=== PATIENT | male | born 1980 | race African-American/Black ===

== ENCOUNTER 2023-06-20 19:14 | Inpatient (IN) | payer OTHER ==
[2023-06-20 20:35] VITALS: BMI 19.3
[2023-06-20] MEDS ORDERED: ACETAMINOPHEN 325 MG TABLET (FP) PO PRN (22:41)
[2023-06-20] MEDS ORDERED: DICYCLOMINE HCL 10 MG CAPSULE PO PRN (22:41)
[2023-06-20] MEDS ORDERED: guaiFENesin 600 MG TABLET.ER (FP) PO PRN (22:41)
[2023-06-20] MEDS ORDERED: BISMUTH SUBSALICYLATE 524 MG/30 ML PO PRN (22:41)
[2023-06-20] MEDS ORDERED: ONDANSETRON *ODT* 4 MG TABLET SL PRN (22:41)
[2023-06-20] MEDS ORDERED: BENZOCAINE/MENTHOL (CHLORASEPTIC ) LOZENGE MM PRN (22:41)
[2023-06-20] MEDS ORDERED: IBUPROFEN 400 MG TABLET (FP) PO PRN (22:41)
[2023-06-20] MEDS ORDERED: MAGNESIUM HYDROX 2400MG/30ML ORAL SUSPENSION 30 ML CUP PO PRN (22:41)
[2023-06-20] MEDS ORDERED: BENZONATATE 200 MG CAPSULE PO PRN (22:41)
[2023-06-20] MEDS ORDERED: MAG HYDROX/AL HYDROX/SIMETH 30 ML UNIT-DOSE CUP PO PRN (22:41)
[2023-06-20] MEDS ORDERED: LOPERAMIDE HCL 2 MG CAPSULE PO PRN (22:41)
[2023-06-20] MEDS ORDERED: IBUPROFEN 600 MG TABLET (FP) PO PRN (22:41)
[2023-06-20] MEDS ORDERED: NICOTINE POLACRILEX 2 MG GUM BUC PRN (22:41)
[2023-06-20] MEDS ORDERED: NALOXONE HCL 0.4 MG/ML VIAL IM PRN (22:41)
[2023-06-20] MEDS ORDERED: POLYETHYLENE GLYCOL (HEALTHYLAX) 3350 17 GM PACKET PO PRN (22:41)
[2023-06-20] MEDS ORDERED: NALOXONE HCL (KLOXXADO) 8 MG SPRAY NS PRN (22:41)
[2023-06-21] MEDS: hydrOXYzine PAMOATE 25 MG CAPSULE (FP) PO PRN ×2 (01:42→09:57)
[2023-06-21] MEDS: METHOCARBAMOL 500 MG TABLET PO PRN ×3 (01:42→17:13)
[2023-06-21] MEDS: NICOTINE 14 MG/24 HOURS TOPICAL PATCH TD SCH (09:57)
[2023-06-21] MEDS: PRENATAL VITAMINS W/ FOLIC ACID TABLET (FP) PO SCH (09:57)
[2023-06-21] MEDS ORDERED: chlordiazePOXIDE HCL 25 MG CAPSULE PO PRN (11:02)
[2023-06-21] MEDS: chlordiazePOXIDE HCL 25 MG CAPSULE PO SCH ×3 (11:54→22:23)
[2023-06-21] MEDS: CITALOPRAM HYDROBROMIDE 10 MG TABLET PO SCH (12:13)
[2023-06-21 17:10] LABS: HEMATOCRIT 36.8 % (35.4-49); HEMOGLOBIN 12.6 GM/dL (11.7-16.9); MCH 36.4 pg (25.7-33.7); MCHC 34.3 g/dl (32.0-35.9); MEAN CELL VOLUME 106.1 fl (80-96); MEAN PLT VOLUME 8.8 fl (7.5-11.1); PLATELET COUNT 133 10^3/uL (134-434); RBC 3.46 M/mm3 (4.00-5.60); RDW 13.4 % (11.9-15.9); WHITE BLOOD COUNT 3.3 K/mm3 (4.0-10.0)
[2023-06-21 17:11] LABS: CHLORIDE 104 mmol/L (98-107); POTASSIUM 3.6 mmol/L (3.5-5.1); SODIUM 138 mmol/L (136-145)
[2023-06-21 17:17] LABS: CALCIUM 9.1 mg/dL (8.5-10.1)
[2023-06-21 17:18] LABS: ALBUMIN 3.2 g/dl (3.4-5.0); ANION GAP 2 mmol/L (4-13); BLOOD UREA NITROGEN 7.4 mg/dL (7-18); CO2 32 mmol/L (21-32); GLUCOSE,RANDOM 90 mg/dL (74-106)
[2023-06-21 17:21] LABS: SGOT/AST 73 U/L (15-37); SGPT/ALT 67 U/L (13-61)
[2023-06-21 17:22] LABS: BILIRUBIN,TOTAL 0.7 mg/dL (0.2-1); TOT PROT 6.3 g/dl (6.4-8.2)
[2023-06-21 17:24] LABS: ALK PHOS 81 U/L (45-117)
[2023-06-21] MEDS: DORZOLAMIDE 2% HCL OPHTHALMIC SOLUTION 10 ML BOTTLE OS SCH (21:05)
[2023-06-21] MEDS ORDERED: MELATONIN 5 MG TABLETS PO SCH (22:00)
[2023-06-21] MEDS: QUEtiapine FUMARATE 100 MG TABLET (FP) PO SCH (22:23)
[2023-06-21] MEDS: THIAMINE HCL 100 MG TABLET (FP) PO SCH (22:23)
[2023-06-21] MEDS: LATANOPROST 0.005% OPHTH SOLN 2.5ML BOTTLE OS SCH (22:25)
[2023-06-22] MEDS: chlordiazePOXIDE HCL 25 MG CAPSULE PO SCH ×4 (05:55→22:30)
[2023-06-22] MEDS: NICOTINE 14 MG/24 HOURS TOPICAL PATCH TD SCH (10:13)
[2023-06-22] MEDS: METHOCARBAMOL 500 MG TABLET PO PRN (10:13)
[2023-06-22] MEDS: PRENATAL VITAMINS W/ FOLIC ACID TABLET (FP) PO SCH (10:13)
[2023-06-22] MEDS: CITALOPRAM HYDROBROMIDE 10 MG TABLET PO SCH (10:13)
[2023-06-22] MEDS: hydrOXYzine PAMOATE 25 MG CAPSULE (FP) PO PRN (10:13)
[2023-06-22] MEDS: DORZOLAMIDE 2% HCL OPHTHALMIC SOLUTION 10 ML BOTTLE OS SCH ×2 (10:14→22:35)
[2023-06-22] MEDS: THIAMINE HCL 100 MG TABLET (FP) PO SCH (22:30)
[2023-06-22] MEDS: QUEtiapine FUMARATE 100 MG TABLET (FP) PO SCH (22:30)
[2023-06-22] MEDS: LATANOPROST 0.005% OPHTH SOLN 2.5ML BOTTLE OS SCH (22:35)
[2023-06-23] MEDS: chlordiazePOXIDE HCL 25 MG CAPSULE PO SCH ×2 (05:25→10:34)
[2023-06-23 09:58] VITALS: BP 137/89; PULSE 54; RESP 16; TEMP 98.1
[2023-06-23] MEDS: NICOTINE 14 MG/24 HOURS TOPICAL PATCH TD SCH (10:29)
[2023-06-23] MEDS: METHOCARBAMOL 500 MG TABLET PO PRN (10:32)
[2023-06-23] MEDS: PRENATAL VITAMINS W/ FOLIC ACID TABLET (FP) PO SCH (10:32)
[2023-06-23] MEDS: hydrOXYzine PAMOATE 25 MG CAPSULE (FP) PO PRN (10:32)
[2023-06-23] MEDS: CITALOPRAM HYDROBROMIDE 10 MG TABLET PO SCH (10:32)
[2023-06-23] MEDS: DORZOLAMIDE 2% HCL OPHTHALMIC SOLUTION 10 ML BOTTLE OS SCH (10:34)
[2023-06-24] MEDS ORDERED: chlordiazePOXIDE HCL 10 MG CAPSULE PO PRN
[2023-06-24] MEDS ORDERED: chlordiazePOXIDE HCL 10 MG CAPSULE PO SCH (05:00)
[2023-06-25] MEDS ORDERED: chlordiazePOXIDE HCL 10 MG CAPSULE PO SCH (05:00)
[2023-06-26] MEDS ORDERED: chlordiazePOXIDE HCL 10 MG CAPSULE PO ONE (05:00)
== END 2023-06-23 11:45 | disposition home or self-care (01) | DRG 774 ==
LOC: YASAS 19:14 → Y6N 23:56
PROVIDERS: ADMIT Allergy & Immunology; ATTEND Surgery
PROC: HZ2ZZZZ Detoxification Services for Substance Abuse Treatment (ICD-10-PCS; principal; 2023-06-20)
DX: F10.230 Alcohol dependence with withdrawal, uncomplicated (principal); F14.20 Cocaine dependence, uncomplicated; F16.20 Hallucinogen dependence, uncomplicated; F12.20 Cannabis dependence, uncomplicated; F17.210 Nicotine dependence, cigarettes, uncomplicated; F31.9 Bipolar disorder, unspecified; H40.9 Unspecified glaucoma; M17.11 Unilateral primary osteoarthritis, right knee
CPT/HCPCS: 36415; 80053; 80307; 85027; 86780; 87635; 87811

== ENCOUNTER 2023-07-10 02:47 | Emergency (ER) | payer OTHER ==
[2023-07-10 03:00] VITALS: BP 127/80; PULSE 98; RESP 19; TEMP 98; BMI 20.6
[2023-07-10] MEDS ORDERED: LACTATED RINGERS SOLUTION 1000 ML INFUS.BAG IV ONE (03:29)
[2023-07-10 03:51] LABS: HEMATOCRIT 39.3 % (35.4-49); HEMOGLOBIN 13.4 GM/dL (11.7-16.9); LYMPH % 39.8 % (8-40); MCH 35.8 pg (25.7-33.7); MCHC 34.1 g/dl (32.0-35.9); MEAN CELL VOLUME 105.1 fl (80-96); MEAN PLT VOLUME 7.8 fl (7.5-11.1); MONO % 8.5 % (3.8-10.2); NEUT % 49.7 % (42.8-82.8); PLATELET COUNT 197 10^3/uL (134-434); RBC 3.74 M/mm3 (4.00-5.60); RDW 13.8 % (11.9-15.9); WHITE BLOOD COUNT 4.6 K/mm3 (4.0-10.0)
[2023-07-10 04:15] LABS: POTASSIUM 3.3 mmol/L (3.5-5.1)
[2023-07-10 04:17] LABS: ALBUMIN 3.8 g/dl (3.4-5.0); BLOOD UREA NITROGEN 10.9 mg/dL (7-18); CALCIUM 9.1 mg/dL (8.5-10.1)
[2023-07-10 04:20] LABS: CREATININE 1.1 mg/dL (0.55-1.3)
[2023-07-10 04:22] LABS: BILIRUBIN,TOTAL 0.4 mg/dL (0.2-1); TOT PROT 7.3 g/dl (6.4-8.2)
[2023-07-10] MEDS ORDERED: POTASSIUM CHLORIDE TABS 20 MEQ TABLET.ER (FP) PO ONE ×2 (04:39→04:46)
[2023-07-10] MEDS ORDERED: MAGNESIUM SULF 50% (8.12 MEQ/2 ML-1 GM VIAL) IVPB ONE (04:39)
[2023-07-10] MEDS ORDERED: MAGNESIUM SULFATE IN WATER 2 GM/50 ML IVPB IVPB ONE (04:46)
[2023-07-10 06:07] LABS: ANISOCYTOSIS 1+; MACROCYTOSIS 1+; PLATELET ESTIMATE NORMAL
== END 2023-07-10 06:32 | disposition home or self-care (01) ==
LOC: JER 02:47
PROC: 3E033GC Introduction of Other Therapeutic Substance into Peripheral Vein, Percutaneous Approach (ICD-10-PCS; principal; 2023-07-10)
DX: F10.129 Alcohol abuse with intoxication, unspecified (principal); Y90.8 Blood alcohol level of 240 mg/100 ml or more
CPT/HCPCS: 36415; 80053; 80307; 84484; 85025; 93005; 93010; 99284-25

== ENCOUNTER 2023-07-11 09:36 | Observation (INO) | payer OTHER ==
[2023-07-11] MEDS ORDERED: MAG HYDROX/AL HYDROX/SIMETH 30 ML UNIT-DOSE CUP PO ONE (11:12)
[2023-07-11] MEDS ORDERED: ONDANSETRON 4 MG/2 ML VIAL IVPUSH ONE (11:12)
[2023-07-11] MEDS ORDERED: LACTATED RINGERS SOLUTION 1000 ML INFUS.BAG IV ONE (11:12)
[2023-07-11] MEDS ORDERED: FAMOTIDINE 20 MG/50 ML IVPB 20 MG/50 ML MG IVPB ONE ×2 (11:12→11:35)
[2023-07-11] MEDS ORDERED: MAG HYDROX/AL HYDROX/SIMETH 30 ML UNIT-DOSE CUP ONE (11:35)
[2023-07-11] MEDS ORDERED: ONDANSETRON 4 MG/2 ML VIAL ONE (11:35)
[2023-07-11 13:00] LABS: BASO % 0.9 % (0-2.0); EOS % 0.1 % (0-4.5); HEMATOCRIT 36.9 % (35.4-49); HEMOGLOBIN 12.5 GM/dL (11.7-16.9); LYMPH % 13.3 % (8-40); MCH 35.6 pg (25.7-33.7); MCHC 33.9 g/dl (32.0-35.9); MEAN CELL VOLUME 105.2 fl (80-96); MEAN PLT VOLUME 8.7 fl (7.5-11.1); MONO % 9.1 % (3.8-10.2); NEUT % 76.6 % (42.8-82.8); PLATELET COUNT 157 10^3/uL (134-434); RBC 3.51 M/mm3 (4.00-5.60); RDW 13.5 % (11.9-15.9); WHITE BLOOD COUNT 5.8 K/mm3 (4.0-10.0)
[2023-07-11 13:06] LABS: INR 1.01 (0.83-1.09); PROTHROMBIN TIME (PATIENT) 11.7 SEC (9.7-13.0)
[2023-07-11 13:09] LABS: ACTIVATED PTT 28.5 SECONDS (25.2-36.5)
[2023-07-11 13:19] LABS: POTASSIUM 3.6 mmol/L (3.5-5.1)
[2023-07-11 13:21] LABS: ALBUMIN 3.8 g/dl (3.4-5.0); BLOOD UREA NITROGEN 10.8 mg/dL (7-18); CALCIUM 8.5 mg/dL (8.5-10.1); MAGNESIUM 1.6 mg/dL (1.8-2.4)
[2023-07-11 13:26] LABS: BILIRUBIN,TOTAL 1.1 mg/dL (0.2-1); TOT PROT 7.4 g/dl (6.4-8.2)
[2023-07-11] MEDS ORDERED: chlordiazePOXIDE HCL 25 MG CAPSULE PO ONE (16:32)
[2023-07-11 16:36] LABS: OPIATES, URI NEGATIVE (NEGATIVE); URINE BARBITURATES NEGATIVE (NEGATIVE)
[2023-07-11 16:37] LABS: METHADONE, UR NEGATIVE (NEGATIVE); URINE AMPHETAMINES NEGATIVE (NEGATIVE)
[2023-07-11 16:39] LABS: COCAINE, UR POSITIVE (NEGATIVE); PHENCYCLIDINE,URINE POSITIVE (NEGATIVE); URINE BENZODIAZEPINES POSITIVE (NEGATIVE)
[2023-07-11] MEDS ORDERED: chlordiazePOXIDE HCL 25 MG CAPSULE ONE (17:30)
[2023-07-11] MEDS ORDERED: ACETAMINOPHEN INJECTION 100 ML IVPB ONE (17:30)
[2023-07-11] MEDS ORDERED: MAGNESIUM SULF 50% (8.12 MEQ/2 ML-1 GM VIAL) IVPB ONE (19:50)
[2023-07-11] MEDS ORDERED: MAGNESIUM SULFATE IN WATER 2 GM/50 ML IVPB IVPB ONE (20:35)
[2023-07-11] MEDS: DEXTROSE 5%-0.45% SALINE 1,000 ML IV SCH (21:26)
[2023-07-12 04:29] VITALS: BMI 20.3
[2023-07-12 08:18] LABS: BASO % 0.8 % (0-2.0); EOS % 1.7 % (0-4.5); HEMATOCRIT 35.2 % (35.4-49); HEMOGLOBIN 12.1 GM/dL (11.7-16.9); LYMPH % 27.2 % (8-40); MCH 36.2 pg (25.7-33.7); MCHC 34.3 g/dl (32.0-35.9); MEAN CELL VOLUME 105.5 fl (80-96); MEAN PLT VOLUME 9.2 fl (7.5-11.1); MONO % 13.2 % (3.8-10.2); NEUT % 57.1 % (42.8-82.8); PLATELET COUNT 129 10^3/uL (134-434); RBC 3.34 M/mm3 (4.00-5.60); WHITE BLOOD COUNT 3.6 K/mm3 (4.0-10.0)
[2023-07-12 08:26] LABS: POTASSIUM 3.1 mmol/L (3.5-5.1)
[2023-07-12 08:28] LABS: CALCIUM 8.1 mg/dL (8.5-10.1)
[2023-07-12 08:29] LABS: ALBUMIN 3.3 g/dl (3.4-5.0); BLOOD UREA NITROGEN 9.7 mg/dL (7-18)
[2023-07-12 08:33] LABS: BILIRUBIN,TOTAL 1.7 mg/dL (0.2-1); TOT PROT 6.4 g/dl (6.4-8.2)
[2023-07-12] MEDS ORDERED: ONDANSETRON 4 MG/2 ML VIAL IVPUSH PRN (08:49)
[2023-07-12] MEDS ORDERED: POTASSIUM CHLORIDE ORAL LIQUID 20 MEQ/15 ML PO ONE (09:15)
[2023-07-12 09:38] VITALS: RESP 18
[2023-07-12] MEDS: PANTOPRAZOLE 40 MG TABLET PO SCH (09:48)
[2023-07-12] MEDS: FOLIC ACID 1 MG TABLET (FP) PO SCH (09:48)
[2023-07-12] MEDS: THIAMINE HCL 100 MG TABLET (FP) PO SCH (09:48)
[2023-07-12] MEDS ORDERED: LORazepam 2 MG TABLET PO SCH (11:00)
[2023-07-12] MEDS: DORZOLAMIDE 2% HCL OPHTHALMIC SOLUTION 10 ML BOTTLE OS SCH ×2 (11:10→21:08)
[2023-07-12] MEDS ORDERED: LORazepam 1 MG TABLET PO PRN (12:37)
[2023-07-12] MEDS: DEXTROSE 5%-0.45% SALINE 1,000 ML IV SCH ×2 (13:16→21:01)
[2023-07-12] MEDS: LORazepam 1 MG TABLET PO SCH ×2 (17:13→22:08)
[2023-07-12] MEDS ORDERED: LATANOPROST 0.005% OPHTH SOLN 2.5ML BOTTLE OS SCH (22:00)
[2023-07-12] MEDS ORDERED: QUEtiapine FUMARATE 100 MG TABLET (FP) PO SCH (22:00)
[2023-07-12] MEDS ORDERED: CITALOPRAM HYDROBROMIDE 20 MG TABLET PO SCH (22:00)
[2023-07-13] MEDS: LORazepam 1 MG TABLET PO SCH ×2 (05:40→11:20)
[2023-07-13 08:26] LABS: BASO % 0.7 % (0-2.0); EOS % 2.9 % (0-4.5); HEMATOCRIT 37.4 % (35.4-49); HEMOGLOBIN 12.6 GM/dL (11.7-16.9); LYMPH % 35.1 % (8-40); MCH 35.9 pg (25.7-33.7); MCHC 33.6 g/dl (32.0-35.9); MEAN CELL VOLUME 106.8 fl (80-96); MEAN PLT VOLUME 9.1 fl (7.5-11.1); MONO % 13.5 % (3.8-10.2); NEUT % 47.8 % (42.8-82.8); PLATELET COUNT 118 10^3/uL (134-434); POTASSIUM 3.3 mmol/L (3.5-5.1); RDW 12.8 % (11.9-15.9); WHITE BLOOD COUNT 3.2 K/mm3 (4.0-10.0)
[2023-07-13 08:37] LABS: ALBUMIN 3.2 g/dl (3.4-5.0); BLOOD UREA NITROGEN 6.7 mg/dL (7-18); CALCIUM 8.4 mg/dL (8.5-10.1)
[2023-07-13 08:40] LABS: CREATININE 0.9 mg/dL (0.55-1.3)
[2023-07-13 08:41] LABS: BILIRUBIN,TOTAL 0.8 mg/dL (0.2-1); TOT PROT 6.4 g/dl (6.4-8.2)
[2023-07-13 09:05] LABS: ANISOCYTOSIS 1+; MACROCYTOSIS 2+
[2023-07-13] MEDS: THIAMINE HCL 100 MG TABLET (FP) PO SCH (11:18)
[2023-07-13] MEDS: FOLIC ACID 1 MG TABLET (FP) PO SCH (11:19)
[2023-07-13] MEDS: PANTOPRAZOLE 40 MG TABLET PO SCH (11:19)
[2023-07-13] MEDS: DORZOLAMIDE 2% HCL OPHTHALMIC SOLUTION 10 ML BOTTLE OS SCH (11:26)
[2023-07-13] MEDS ORDERED: POTASSIUM CHLORIDE ORAL LIQUID 20 MEQ/15 ML PO ONE (11:30)
[2023-07-13 15:25] VITALS: BP 155/99; PULSE 58; TEMP 97.8
[2023-07-14] MEDS ORDERED: LORazepam 1 MG TABLET PO SCH (05:00)
[2023-07-15] MEDS ORDERED: LORazepam 0.5 MG TABLET PO PRN
[2023-07-15] MEDS ORDERED: LORazepam 0.5 MG TABLET PO SCH (05:00)
[2023-07-16] MEDS ORDERED: LORazepam 0.5 MG TABLET PO ONE (05:00)
== END 2023-07-13 15:18 | disposition left against medical advice (07) ==
LOC: JER 09:36 → JERBED 17:19 → J4S 07-12 03:59
PROVIDERS: ADMIT Internal Medicine; ATTEND Internal Medicine
PROC: 3E0337Z Introduction of Electrolytic and Water Balance Substance into Peripheral Vein, Percutaneous Approach (ICD-10-PCS; principal; 2023-07-11)
PROC: 3E033GC Introduction of Other Therapeutic Substance into Peripheral Vein, Percutaneous Approach (ICD-10-PCS; 2023-07-11)
PROC: 3E0337Z Introduction of Electrolytic and Water Balance Substance into Peripheral Vein, Percutaneous Approach (ICD-10-PCS; 2023-07-11)
DX: F10.229 Alcohol dependence with intoxication, unspecified (principal); F12.90 Cannabis use, unspecified, uncomplicated; R63.8 Other symptoms and signs concerning food and fluid intake; K70.0 Alcoholic fatty liver; F19.239 Other psychoactive substance dependence with withdrawal, unspecified; F41.8 Other specified anxiety disorders; F31.9 Bipolar disorder, unspecified; M16.11 Unilateral primary osteoarthritis, right hip; M41.9 Scoliosis, unspecified; R10.9 Unspecified abdominal pain; R74.8 Abnormal levels of other serum enzymes; F17.210 Nicotine dependence, cigarettes, uncomplicated
CPT/HCPCS: 0241U-QW; 36415; 71045-TC-FY; 74177-TC; 80053; 80307; 83690; 83735; 84484; 85025; 85610; 85730; 93005; 93010; 96361; 96365; 96375; 97116-GP; 97161-GP; 99285-25; G0378; Q9967

== ENCOUNTER 2023-08-16 01:35 | Emergency (ER) | payer OTHER ==
[2023-08-16] MEDS ORDERED: FAMOTIDINE 10 MG TABLET PO ONE (06:20)
[2023-08-16] MEDS ORDERED: MAG HYDROX/AL HYDROX/SIMETH 30 ML UNIT-DOSE CUP PO ONE (06:20)
[2023-08-16 06:34] LABS: BASO % 0.8 % (0-2.0); EOS % 1.2 % (0-4.5); HEMATOCRIT 42.1 % (35.4-49); HEMOGLOBIN 14.2 GM/dL (11.7-16.9); LYMPH % 52.3 % (8-40); MCH 35.6 pg (25.7-33.7); MCHC 33.7 g/dl (32.0-35.9); MEAN CELL VOLUME 105.8 fl (80-96); MEAN PLT VOLUME 7.4 fl (7.5-11.1); MONO % 9.5 % (3.8-10.2); NEUT % 36.2 % (42.8-82.8); PLATELET COUNT 228 10^3/uL (134-434); RBC 3.98 M/mm3 (4.00-5.60); RDW 12.9 % (11.9-15.9); WHITE BLOOD COUNT 4.6 K/mm3 (4.0-10.0)
[2023-08-16 06:42] LABS: INR 0.96 (0.83-1.09); PROTHROMBIN TIME (PATIENT) 11.1 SEC (9.7-13.0)
[2023-08-16 06:44] LABS: ACTIVATED PTT 30.3 SECONDS (25.2-36.5)
[2023-08-16 06:45] LABS: POTASSIUM 3.5 mmol/L (3.5-5.1)
[2023-08-16 06:47] LABS: ALBUMIN 3.7 g/dl (3.4-5.0); BLOOD UREA NITROGEN 9.5 mg/dL (7-18); CALCIUM 8.5 mg/dL (8.5-10.1); MAGNESIUM 1.4 mg/dL (1.8-2.4)
[2023-08-16 06:50] LABS: CREATININE 1.1 mg/dL (0.55-1.3)
[2023-08-16 06:52] LABS: BILIRUBIN,TOTAL 0.1 mg/dL (0.2-1); TOT PROT 7.6 g/dl (6.4-8.2)
[2023-08-16] MEDS ORDERED: FAMOTIDINE 10 MG TABLET ONE (06:59)
[2023-08-16] MEDS ORDERED: MAG HYDROX/AL HYDROX/SIMETH 30 ML UNIT-DOSE CUP ONE (06:59)
[2023-08-16] MEDS ORDERED: MAGNESIUM SULF 50% (8.12 MEQ/2 ML-1 GM VIAL) IVPB ONE (08:06)
[2023-08-16 08:50] LABS: ANISOCYTOSIS 1+; MACROCYTOSIS 0
[2023-08-16] MEDS ORDERED: MAGNESIUM SULFATE IN WATER 2 GM/50 ML IVPB IVPB ONE (08:58)
[2023-08-16 12:15] VITALS: BP 127/68; PULSE 78; RESP 19; TEMP 97.9
== END 2023-08-16 12:17 | disposition home or self-care (01) ==
LOC: JER 01:35
PROC: 3E033GC Introduction of Other Therapeutic Substance into Peripheral Vein, Percutaneous Approach (ICD-10-PCS; principal; 2023-08-16)
DX: F10.220 Alcohol dependence with intoxication, uncomplicated (principal); R10.84 Generalized abdominal pain; K59.00 Constipation, unspecified; Y90.9 Presence of alcohol in blood, level not specified
CPT/HCPCS: 36415; 71046-TC-FY; 74177-TC; 80053; 83690; 83735; 84484; 85025; 85610; 85730; 93005; 93010; 96374; 99285-25; Q9967

== ENCOUNTER 2023-11-16 00:55 | Emergency (ER) | payer OTHER ==
[2023-11-16 01:03] VITALS: BP 151/100; PULSE 100; RESP 20; TEMP 98; BMI 20.7
[2023-11-16] MEDS ORDERED: THIAMINE HCL 200 MG/2 ML VIAL ONE (02:16)
[2023-11-16 02:50] LABS: VENOUS BASE EXCESS -0.1 mmol/L (-2-2); VENOUS O2 SATURATION 90.9 % (70-80); VENOUS PCO2 45.2 mmHg (38-52)
[2023-11-16 02:51] LABS: BASO % 1.4 % (0-2.0); EOS % 0.9 % (0-4.5); HEMATOCRIT 38.4 % (35.4-49); HEMOGLOBIN 13.1 GM/dL (11.7-16.9); LYMPH % 43.1 % (8-40); MCH 35.8 pg (25.7-33.7); MCHC 34.1 g/dl (32.0-35.9); MEAN CELL VOLUME 104.7 fl (80-96); MEAN PLT VOLUME 8.1 fl (7.5-11.1); MONO % 6.9 % (3.8-10.2); NEUT % 47.7 % (42.8-82.8); PLATELET COUNT 207 10^3/uL (134-434); RBC 3.66 M/mm3 (4.00-5.60); RDW 14.2 % (11.9-15.9); WHITE BLOOD COUNT 4.2 K/mm3 (4.0-10.0)
[2023-11-16] MEDS: DEXTROSE 5%-NORMAL SALINE 1,000 ML IV SCH (03:01)
[2023-11-16] MEDS: THIAMINE HCL 200 MG/2 ML VIAL IVPB ONE (03:01)
[2023-11-16 03:05] LABS: POTASSIUM 3.3 mmol/L (3.5-5.1)
[2023-11-16 03:07] LABS: BLOOD UREA NITROGEN 14.8 mg/dL (7-18); CALCIUM 9.1 mg/dL (8.5-10.1); MAGNESIUM 1.9 mg/dL (1.8-2.4)
[2023-11-16 03:10] LABS: CREATININE 1.1 mg/dL (0.55-1.3)
[2023-11-16 03:12] LABS: BILIRUBIN,TOTAL 0.5 mg/dL (0.2-1); TOT PROT 7.9 g/dl (6.4-8.2)
[2023-11-16 09:30] LABS: VENOUS PH 7.37 (7.310-7.410)
== END 2023-11-16 06:19 | disposition short-term general hospital (02) ==
LOC: JER 00:55
DX: R10.9 Unspecified abdominal pain (principal); R07.9 Chest pain, unspecified; F10.20 Alcohol dependence, uncomplicated; Z20.822 Contact with and (suspected) exposure to COVID-19
CPT/HCPCS: 0241U-QW; 36415; 80053; 82550; 82553; 82803; 83690; 83735; 84484; 85025; 99285-25

== ENCOUNTER 2023-12-05 03:16 | Emergency (ER) | payer OTHER ==
[2023-12-05 03:21] VITALS: BMI 21.2
[2023-12-05 03:37] LABS: BASO % 0.5 % (0-2.0); EOS % 1.1 % (0-4.5); HEMATOCRIT 37.4 % (35.4-49); HEMOGLOBIN 12.7 GM/dL (11.7-16.9); LYMPH % 48.2 % (8-40); MCH 36.1 pg (25.7-33.7); MEAN CELL VOLUME 105.9 fl (80-96); MEAN PLT VOLUME 7.1 fl (7.5-11.1); MONO % 8.6 % (3.8-10.2); NEUT % 41.6 % (42.8-82.8); PLATELET COUNT 178 10^3/uL (134-434); RBC 3.53 M/mm3 (4.00-5.60); RDW 14.2 % (11.9-15.9); WHITE BLOOD COUNT 4.1 K/mm3 (4.0-10.0)
[2023-12-05 03:43] LABS: INR 0.96 (0.83-1.09); PROTHROMBIN TIME (PATIENT) 10.9 SEC (9.7-13.0)
[2023-12-05 03:45] LABS: ACTIVATED PTT 32.7 SECONDS (25.2-36.5)
[2023-12-05] MEDS ORDERED: ONDANSETRON 4 MG/2 ML VIAL ONE (03:54)
[2023-12-05] MEDS ORDERED: PANTOPRAZOLE SODIUM 40 MG VIAL ONE (03:54)
[2023-12-05] MEDS ORDERED: FAMOTIDINE 20 MG/50 ML IVPB 20 MG/50 ML MG IVPB ONE (03:54)
[2023-12-05] MEDS: ONDANSETRON 4 MG/2 ML VIAL IVPUSH ONE (04:26)
[2023-12-05] MEDS: FAMOTIDINE 20 MG/50 ML IVPB 20 MG/50 ML MG IVPB ONE (04:26)
[2023-12-05] MEDS: PANTOPRAZOLE SODIUM 40 MG VIAL IVPUSH ONE (04:26)
[2023-12-05] MEDS: SODIUM CHLORIDE 0.9% 500 ML INFUS.BAG IV ONE (04:26)
[2023-12-05 04:46] LABS: ANISOCYTOSIS 2+; MACROCYTOSIS 1+; ROULEAU 1+
[2023-12-05 05:21] LABS: ALBUMIN 3.9 g/dl (3.4-5.0); BLOOD UREA NITROGEN 11.3 mg/dL (7-18); CALCIUM 8.6 mg/dL (8.5-10.1)
[2023-12-05 05:24] LABS: CREATININE 1.1 mg/dL (0.55-1.3)
[2023-12-05 05:26] LABS: BILIRUBIN,TOTAL 0.3 mg/dL (0.2-1)
[2023-12-05] MEDS ORDERED: THIAMINE HCL 200 MG/2 ML VIAL ONE (05:42)
[2023-12-05] MEDS ORDERED: DIPHTH,PERTUSS(ACELL),TET 0.5 ML DISP.SYRIN IM ONE (05:43)
[2023-12-05] MEDS ORDERED: KCL 10 MEQ IVPB 20 MEQ/200 ML INFUS.BAG IVPB ONE (05:43)
[2023-12-05] MEDS: DIPHTH,PERTUSS(ACELL),TET 0.5 ML DISP.SYRIN IM ONE (06:02)
[2023-12-05] MEDS: THIAMINE HCL 200 MG/2 ML VIAL IVPB ONE (06:06)
[2023-12-05] MEDS: KCL 10 MEQ IVPB 10 MEQ/100 ML INFUS.BAG IVPB SCH (06:06)
[2023-12-05] MEDS: LACTATED RINGERS SOLUTION 1,000 ML/1,000 ML INFUS.BAG IV SCH (06:07)
[2023-12-05 06:41] LABS: RETICULOCYTES 0.76 % (0.5-1.5)
[2023-12-05] MEDS ORDERED: KCL 10 MEQ IVPB 10 MEQ/100 ML INFUS.BAG IVPB ONE (08:00)
[2023-12-05 08:15] VITALS: BP 157/95; PULSE 65; RESP 19; TEMP 98.3
[2023-12-05 08:49] LABS: MAGNESIUM 2.2 mg/dL (1.8-2.4)
== END 2023-12-05 09:44 | disposition home or self-care (01) ==
LOC: JER 03:16
PROC: 3E033GC Introduction of Other Therapeutic Substance into Peripheral Vein, Percutaneous Approach (ICD-10-PCS; principal; 2023-12-05)
PROC: 3E033GC Introduction of Other Therapeutic Substance into Peripheral Vein, Percutaneous Approach (ICD-10-PCS; 2023-12-05)
PROC: 3E033GC Introduction of Other Therapeutic Substance into Peripheral Vein, Percutaneous Approach (ICD-10-PCS; 2023-12-05)
PROC: 3E033GC Introduction of Other Therapeutic Substance into Peripheral Vein, Percutaneous Approach (ICD-10-PCS; 2023-12-05)
PROC: 3E033GC Introduction of Other Therapeutic Substance into Peripheral Vein, Percutaneous Approach (ICD-10-PCS; 2023-12-05)
PROC: 3E0234Z Introduction of Serum, Toxoid and Vaccine into Muscle, Percutaneous Approach (ICD-10-PCS; 2023-12-05)
DX: R11.2 Nausea with vomiting, unspecified (principal); H53.10 Unspecified subjective visual disturbances; R10.13 Epigastric pain; F10.920 Alcohol use, unspecified with intoxication, uncomplicated; E87.6 Hypokalemia; Y90.8 Blood alcohol level of 240 mg/100 ml or more; Z23 Encounter for immunization
CPT/HCPCS: 36415; 70450-TC; 71045-TC-FY; 71250-TC; 74176-TC; 80053; 80307; 83690; 83735; 85025; 85045; 85610; 85730; 86850; 86900; 86901; 90471; 90715; 93005; 93010; 96365; 96375; 99285-25

== ENCOUNTER 2023-12-26 22:26 | Inpatient (IN) | payer OTHER ==
[2023-12-26] MEDS ORDERED: METHOCARBAMOL 500 MG TABLET PO PRN (23:46)
[2023-12-26] MEDS ORDERED: LOPERAMIDE HCL 2 MG CAPSULE PO PRN (23:46)
[2023-12-26] MEDS ORDERED: NICOTINE POLACRILEX 2 MG LOZENGE BC PRN (23:46)
[2023-12-26] MEDS ORDERED: IBUPROFEN 400 MG TABLET (FP) PO PRN (23:46)
[2023-12-26] MEDS ORDERED: BENZOCAINE/MENTHOL (CHLORASEPTIC ) LOZENGE MM PRN (23:46)
[2023-12-26] MEDS ORDERED: DICYCLOMINE HCL 10 MG CAPSULE PO PRN (23:46)
[2023-12-26] MEDS ORDERED: MAGNESIUM HYDROX 2400MG/30ML ORAL SUSPENSION 30 ML CUP PO PRN (23:46)
[2023-12-26] MEDS ORDERED: IBUPROFEN 600 MG TABLET (FP) PO PRN (23:46)
[2023-12-26] MEDS ORDERED: hydrOXYzine PAMOATE 25 MG CAPSULE (FP) PO PRN (23:46)
[2023-12-26] MEDS ORDERED: NICOTINE POLACRILEX 2 MG GUM BUC PRN (23:46)
[2023-12-26] MEDS ORDERED: BISMUTH SUBSALICYLATE 524 MG/30 ML PO PRN (23:46)
[2023-12-26] MEDS ORDERED: guaiFENesin 600 MG TABLET.ER (FP) PO PRN (23:46)
[2023-12-26] MEDS ORDERED: POLYETHYLENE GLYCOL (HEALTHYLAX) 3350 17 GM PACKET PO PRN (23:46)
[2023-12-26] MEDS ORDERED: MAG HYDROX/AL HYDROX/SIMETH 30 ML UNIT-DOSE CUP PO PRN (23:46)
[2023-12-26] MEDS ORDERED: ACETAMINOPHEN 325 MG TABLET (FP) PO PRN (23:46)
[2023-12-26] MEDS ORDERED: BENZONATATE 200 MG CAPSULE PO PRN (23:46)
[2023-12-27] MEDS: PRENATAL VITAMINS W/ FOLIC ACID TABLET (FP) PO SCH (10:05)
[2023-12-27] MEDS: FOLIC ACID 1 MG TABLET (FP) PO SCH (10:06)
[2023-12-27] MEDS: NICOTINE 7 MG/24 HOURS TOPICAL PATCH TD SCH (10:07)
[2023-12-27] MEDS ORDERED: chlordiazePOXIDE HCL 25 MG CAPSULE PO PRN (10:14)
[2023-12-27] MEDS: chlordiazePOXIDE HCL 25 MG CAPSULE PO SCH (10:48)
[2023-12-27] MEDS: ONDANSETRON *ODT* 4 MG TABLET SL PRN (10:51)
[2023-12-27] MEDS: DORZOLAMIDE 2% HCL OPHTHALMIC SOLUTION 10 ML BOTTLE OS SCH (10:56)
[2023-12-27 11:41] LABS: POTASSIUM 4.2 mmol/L (3.5-5.1)
[2023-12-27 11:43] LABS: BLOOD UREA NITROGEN 13.2 mg/dL (7-18); CALCIUM 9.6 mg/dL (8.5-10.1)
[2023-12-27 11:44] LABS: ALBUMIN 3.9 g/dl (3.4-5.0)
[2023-12-27 11:47] LABS: CREATININE 1.1 mg/dL (0.55-1.3)
[2023-12-27 11:48] LABS: BILIRUBIN,TOTAL 0.7 mg/dL (0.2-1); TOT PROT 7.7 g/dl (6.4-8.2)
[2023-12-27 11:56] LABS: HEMATOCRIT 39.2 % (35.4-49); HEMOGLOBIN 13.5 GM/dL (11.7-16.9); MCH 36.6 pg (25.7-33.7); MCHC 34.3 g/dl (32.0-35.9); MEAN CELL VOLUME 106.5 fl (80-96); MEAN PLT VOLUME 8.5 fl (7.5-11.1); PLATELET COUNT 209 10^3/uL (134-434); RBC 3.68 M/mm3 (4.00-5.60); RDW 13.8 % (11.9-15.9); WHITE BLOOD COUNT 9.1 K/mm3 (4.0-10.0)
[2023-12-27 17:48] VITALS: BP 138/78; PULSE 65; RESP 18; TEMP 97.6
[2023-12-27] MEDS ORDERED: MELATONIN 5 MG TABLETS PO SCH (22:00)
[2023-12-27] MEDS ORDERED: THIAMINE 100 MG TABLET PO SCH (22:00)
[2023-12-27] MEDS ORDERED: LATANOPROST 0.005% OPHTH SOLN 2.5ML BOTTLE OS SCH (22:00)
[2023-12-28] MEDS ORDERED: chlordiazePOXIDE HCL 25 MG CAPSULE PO SCH (05:00)
[2023-12-29] MEDS ORDERED: chlordiazePOXIDE HCL 10 MG CAPSULE PO PRN
[2023-12-29] MEDS ORDERED: chlordiazePOXIDE HCL 10 MG CAPSULE PO SCH (05:00)
[2023-12-30] MEDS ORDERED: chlordiazePOXIDE HCL 10 MG CAPSULE PO SCH (05:00)
[2023-12-31] MEDS ORDERED: chlordiazePOXIDE HCL 10 MG CAPSULE PO ONE (05:00)
== END 2023-12-27 17:21 | disposition left against medical advice (07) | DRG 770 ==
LOC: YASAS 22:26 → Y6N 12-27 01:23
PROVIDERS: ADMIT Allergy & Immunology; ATTEND Allergy & Immunology
PROC: HZ2ZZZZ Detoxification Services for Substance Abuse Treatment (ICD-10-PCS; principal; 2023-12-27)
DX: F10.230 Alcohol dependence with withdrawal, uncomplicated (principal); F12.20 Cannabis dependence, uncomplicated; F17.210 Nicotine dependence, cigarettes, uncomplicated; F25.1 Schizoaffective disorder, depressive type; H40.9 Unspecified glaucoma; J45.909 Unspecified asthma, uncomplicated; M16.11 Unilateral primary osteoarthritis, right hip
CPT/HCPCS: 36415; 80053; 80305; 85027; 86780; Q0162

== ENCOUNTER 2024-01-29 02:25 | Emergency (ER) | payer SELFPAY ==
[2024-01-29 02:36] VITALS: BP 121/77; PULSE 73; RESP 20; TEMP 97.6; BMI 18.7
== END 2024-01-29 05:41 | disposition home or self-care (01) ==
LOC: JER 02:25
DX: F10.229 Alcohol dependence with intoxication, unspecified (principal); F12.20 Cannabis dependence, uncomplicated; F17.210 Nicotine dependence, cigarettes, uncomplicated; F16.20 Hallucinogen dependence, uncomplicated
CPT/HCPCS: 36415; 70450-TC; 72125-TC; 80307; 93005; 93010; 99285-25

== ENCOUNTER 2024-01-29 06:57 | Inpatient (IN) | payer OTHER ==
[2024-01-29 07:34] VITALS: BMI 21.2
[2024-01-29] MEDS ORDERED: NALOXONE HCL 0.4 MG/ML VIAL IM PRN (07:53)
[2024-01-29] MEDS ORDERED: ACETAMINOPHEN 325 MG TABLET (FP) PO PRN (07:53)
[2024-01-29] MEDS ORDERED: BISMUTH SUBSALICYLATE 524 MG/30 ML PO PRN (07:53)
[2024-01-29] MEDS ORDERED: BENZOCAINE/MENTHOL (CHLORASEPTIC ) LOZENGE MM PRN (07:53)
[2024-01-29] MEDS ORDERED: MAGNESIUM HYDROX 2400MG/30ML ORAL SUSPENSION 30 ML CUP PO PRN (07:53)
[2024-01-29] MEDS ORDERED: NALOXONE (NARCAN) HCL 4 MG/0.1 ML SPRAY NS PRN (07:53)
[2024-01-29] MEDS ORDERED: DICYCLOMINE HCL 10 MG CAPSULE PO PRN (07:53)
[2024-01-29] MEDS ORDERED: guaiFENesin 600 MG TABLET.ER (FP) PO PRN (07:53)
[2024-01-29] MEDS ORDERED: LOPERAMIDE HCL 2 MG CAPSULE PO PRN (07:53)
[2024-01-29] MEDS ORDERED: POLYETHYLENE GLYCOL (HEALTHYLAX) 3350 17 GM PACKET PO PRN (07:53)
[2024-01-29] MEDS ORDERED: IBUPROFEN 400 MG TABLET (FP) PO PRN (07:53)
[2024-01-29] MEDS ORDERED: BENZONATATE 200 MG CAPSULE PO PRN (07:53)
[2024-01-29] MEDS ORDERED: NICOTINE POLACRILEX 4 MG GUM BUC PRN (07:53)
[2024-01-29] MEDS ORDERED: PRENATAL VITAMINS W/ FOLIC ACID TABLET (FP) PO ONE (09:35)
[2024-01-29] MEDS ORDERED: NICOTINE 21 MG/24 HOURS TOPICAL PATCH ONE (09:35)
[2024-01-29] MEDS ORDERED: ONDANSETRON *ODT* 4 MG TABLET ONE (09:35)
[2024-01-29] MEDS ORDERED: IBUPROFEN 600 MG TABLET (FP) PO ONE (09:36)
[2024-01-29] MEDS: IBUPROFEN 600 MG TABLET (FP) PO PRN (09:39)
[2024-01-29] MEDS: NICOTINE 21 MG/24 HOURS TOPICAL PATCH TD SCH (09:39)
[2024-01-29] MEDS: PRENATAL VITAMINS W/ FOLIC ACID TABLET (FP) PO SCH (09:39)
[2024-01-29] MEDS: ONDANSETRON *ODT* 4 MG TABLET SL PRN (09:40)
[2024-01-29] MEDS: MELATONIN 5 MG TABLETS PO SCH (22:12)
[2024-01-29] MEDS: hydrOXYzine PAMOATE 25 MG CAPSULE (FP) PO PRN (22:12)
[2024-01-29] MEDS: THIAMINE 100 MG TABLET PO SCH (22:12)
[2024-01-30 12:07] LABS: POTASSIUM 3.6 mmol/L (3.5-5.1)
[2024-01-30 12:11] LABS: CALCIUM 8.5 mg/dL (8.5-10.1)
[2024-01-30 12:12] LABS: ALBUMIN 3.8 g/dl (3.4-5.0); BLOOD UREA NITROGEN 12.2 mg/dL (7-18); HEMATOCRIT 34.1 % (35.4-49); HEMOGLOBIN 11.6 GM/dL (11.7-16.9); MCH 36.4 pg (25.7-33.7); MEAN CELL VOLUME 107.2 fl (80-96); MEAN PLT VOLUME 8.7 fl (7.5-11.1); PLATELET COUNT 127 10^3/uL (134-434); RBC 3.18 M/mm3 (4.00-5.60); RDW 13.1 % (11.9-15.9); WHITE BLOOD COUNT 3.1 K/mm3 (4.0-10.0)
[2024-01-30 12:16] LABS: TOT PROT 6.8 g/dl (6.4-8.2)
[2024-01-30 12:17] LABS: BILIRUBIN,TOTAL 0.5 mg/dL (0.2-1)
[2024-01-30] MEDS ORDERED: chlordiazePOXIDE HCL 25 MG CAPSULE PO PRN (12:18)
[2024-01-30] MEDS ORDERED: diazePAM 5 MG TABLET PO PRN (12:31)
[2024-01-30] MEDS ORDERED: chlordiazePOXIDE HCL 25 MG CAPSULE PO SCH (17:00)
[2024-01-30] MEDS: diazePAM 5 MG TABLET PO SCH (17:20)
[2024-01-30] MEDS: cloNIDine HCL 0.1 MG TABLET PO PRN (17:21)
[2024-01-30] MEDS: LATANOPROST 0.005% OPHTH SOLN 2.5ML BOTTLE OS SCH (22:02)
[2024-01-30] MEDS: DORZOLAMIDE 2% HCL OPHTHALMIC SOLUTION 10 ML BOTTLE OS SCH (22:03)
[2024-01-31] MEDS: PNEUMOC 20-VAL CONJ-DIP CRM/PF 0.5 ML SYRINGE IM ONE (11:56)
[2024-02-01] MEDS ORDERED: chlordiazePOXIDE HCL 25 MG CAPSULE PO SCH (05:00)
[2024-02-01] MEDS: diazePAM 5 MG TABLET PO SCH (05:51)
[2024-02-01] MEDS: MAG HYDROX/AL HYDROX/SIMETH 30 ML UNIT-DOSE CUP PO PRN (22:27)
[2024-02-02] MEDS ORDERED: chlordiazePOXIDE HCL 10 MG CAPSULE PO PRN
[2024-02-02] MEDS ORDERED: chlordiazePOXIDE HCL 10 MG CAPSULE PO SCH (05:00)
[2024-02-02] MEDS: diazePAM 5 MG TABLET PO SCH (06:04)
[2024-02-02 09:17] VITALS: BP 159/98; PULSE 65; RESP 17; TEMP 97.7
[2024-02-03] MEDS ORDERED: chlordiazePOXIDE HCL 10 MG CAPSULE PO SCH (05:00)
[2024-02-03] MEDS ORDERED: diazePAM 5 MG TABLET PO ONE (06:00)
[2024-02-04] MEDS ORDERED: chlordiazePOXIDE HCL 10 MG CAPSULE PO ONE (05:00)
== END 2024-02-02 09:03 | disposition home or self-care (01) | DRG 774 ==
LOC: YASAS 06:57 → Y3N 08:50
PROVIDERS: ADMIT Allergy & Immunology; ATTEND Surgery
PROC: HZ2ZZZZ Detoxification Services for Substance Abuse Treatment (ICD-10-PCS; principal; 2024-01-29)
DX: F10.230 Alcohol dependence with withdrawal, uncomplicated (principal); F14.10 Cocaine abuse, uncomplicated; F16.20 Hallucinogen dependence, uncomplicated; F12.20 Cannabis dependence, uncomplicated; F17.210 Nicotine dependence, cigarettes, uncomplicated; F31.9 Bipolar disorder, unspecified; F41.9 Anxiety disorder, unspecified; H54.62 Unqualified visual loss, left eye, normal vision right eye; M16.11 Unilateral primary osteoarthritis, right hip; M41.9 Scoliosis, unspecified; R74.01 Elevation of levels of liver transaminase levels; R73.03 Prediabetes
CPT/HCPCS: 36415; 70450-TC; 72125-TC; 80053; 80305; 80307; 85027; 86780; 93005; 93010; 99285-25; Q0162

== ENCOUNTER 2024-02-10 16:45 | Emergency (ER) | payer OTHER ==
[2024-02-10 16:57] VITALS: BP 122/67; PULSE 97; RESP 18; TEMP 98.4
== END 2024-02-10 19:26 | disposition home or self-care (01) ==
LOC: JERFT 16:45
DX: S90.121A Contusion of right lesser toe(s) without damage to nail, initial encounter (principal); W04.XXXA Fall while being carried or supported by other persons, initial encounter
CPT/HCPCS: 73630-TC-RT-FY; 99283-25

== ENCOUNTER 2024-02-14 00:40 | Inpatient (IN) | payer OTHER ==
[2024-02-14 01:21] VITALS: BMI 20.2
[2024-02-14] MEDS ORDERED: BISMUTH SUBSALICYLATE 524 MG/30 ML PO PRN (03:17)
[2024-02-14] MEDS ORDERED: LOPERAMIDE HCL 2 MG CAPSULE PO PRN (03:17)
[2024-02-14] MEDS ORDERED: POLYETHYLENE GLYCOL (HEALTHYLAX) 3350 17 GM PACKET PO PRN (03:17)
[2024-02-14] MEDS ORDERED: ONDANSETRON *ODT* 4 MG TABLET SL PRN (03:17)
[2024-02-14] MEDS ORDERED: BENZOCAINE/MENTHOL (CHLORASEPTIC ) LOZENGE MM PRN (03:17)
[2024-02-14] MEDS ORDERED: MAG HYDROX/AL HYDROX/SIMETH 30 ML UNIT-DOSE CUP PO PRN (03:17)
[2024-02-14] MEDS ORDERED: BENZONATATE 200 MG CAPSULE PO PRN (03:17)
[2024-02-14] MEDS ORDERED: NALOXONE HCL 0.4 MG/ML VIAL IM PRN (03:17)
[2024-02-14] MEDS ORDERED: guaiFENesin 600 MG TABLET.ER (FP) PO PRN (03:17)
[2024-02-14] MEDS ORDERED: MAGNESIUM HYDROX 2400MG/30ML ORAL SUSPENSION 30 ML CUP PO PRN (03:17)
[2024-02-14] MEDS ORDERED: DICYCLOMINE HCL 10 MG CAPSULE PO PRN (03:17)
[2024-02-14] MEDS ORDERED: IBUPROFEN 400 MG TABLET (FP) PO PRN (03:17)
[2024-02-14] MEDS ORDERED: NALOXONE (NARCAN) HCL 4 MG/0.1 ML SPRAY NS PRN (03:17)
[2024-02-14] MEDS: ACETAMINOPHEN 325 MG TABLET (FP) PO PRN (08:45)
[2024-02-14] MEDS: METHOCARBAMOL 500 MG TABLET PO PRN (08:45)
[2024-02-14] MEDS: PRENATAL VITAMINS W/ FOLIC ACID TABLET (FP) PO SCH (09:19)
[2024-02-14] MEDS: diazePAM 5 MG TABLET PO ONE (09:20)
[2024-02-14] MEDS: DORZOLAMIDE 2% HCL OPHTHALMIC SOLUTION 10 ML BOTTLE OS SCH (10:33)
[2024-02-14] MEDS: PNEUMOC 20-VAL CONJ-DIP CRM/PF 0.5 ML SYRINGE IM ONE (11:20)
[2024-02-14] MEDS: diazePAM 5 MG TABLET PO PRN (13:39)
[2024-02-14] MEDS: diazePAM 5 MG TABLET PO SCH (17:09)
[2024-02-14] MEDS: hydrOXYzine PAMOATE 25 MG CAPSULE (FP) PO PRN (17:09)
[2024-02-14] MEDS: LATANOPROST 0.005% OPHTH SOLN 2.5ML BOTTLE OS SCH (21:45)
[2024-02-14] MEDS: MELATONIN 5 MG TABLETS PO SCH (22:38)
[2024-02-14] MEDS: THIAMINE 100 MG TABLET PO SCH (22:38)
[2024-02-15] MEDS: IBUPROFEN 600 MG TABLET (FP) PO PRN (05:48)
[2024-02-15] MEDS ORDERED: NICOTINE POLACRILEX 2 MG GUM BUC PRN (10:36)
[2024-02-15] MEDS ORDERED: NICOTINE POLACRILEX 2 MG LOZENGE BC PRN (10:36)
[2024-02-15] MEDS: NALTREXONE HCL 50 MG TABLET PO ONE (11:18)
[2024-02-15 11:45] LABS: HEMOGLOBIN 12.1 GM/dL (11.7-16.9); MCH 35.6 pg (25.7-33.7); MCHC 33.7 g/dl (32.0-35.9); MEAN CELL VOLUME 105.7 fl (80-96); MEAN PLT VOLUME 8.5 fl (7.5-11.1); PLATELET COUNT 211 10^3/uL (134-434); RBC 3.41 M/mm3 (4.00-5.60); RDW 13.3 % (11.9-15.9); WHITE BLOOD COUNT 3.5 K/mm3 (4.0-10.0)
[2024-02-15 11:53] LABS: CHLORIDE 108 mmol/L (98-107); POTASSIUM 3.5 mmol/L (3.5-5.1); SODIUM 146 mmol/L (136-145)
[2024-02-15 11:55] LABS: ALBUMIN 3.6 g/dl (3.4-5.0); CALCIUM 8.5 mg/dL (8.5-10.1); CO2 28 mmol/L (21-32)
[2024-02-15 11:56] LABS: BLOOD UREA NITROGEN 12.6 mg/dL (7-18); GLUCOSE,RANDOM 68 mg/dL (74-106)
[2024-02-15 11:58] LABS: SGPT/ALT 40 U/L (13-61)
[2024-02-15 11:59] LABS: CREATININE 0.9 mg/dL (0.55-1.3); SGOT/AST 57 U/L (15-37)
[2024-02-15 12:00] LABS: BILIRUBIN,TOTAL 0.3 mg/dL (0.2-1)
[2024-02-15 12:01] LABS: ALK PHOS 57 U/L (45-117)
[2024-02-16] MEDS: diazePAM 5 MG TABLET PO SCH (06:03)
[2024-02-16 08:53] VITALS: BP 157/89; PULSE 55; RESP 16; TEMP 97.5
[2024-02-16] MEDS: NALTREXONE HCL 50 MG TABLET PO SCH (09:29)
[2024-02-17] MEDS ORDERED: diazePAM 5 MG TABLET PO SCH (06:00)
[2024-02-18] MEDS ORDERED: diazePAM 5 MG TABLET PO ONE (06:00)
== END 2024-02-16 09:30 | disposition home or self-care (01) | DRG 774 ==
LOC: YASAS 00:40 → Y3N 03:16
PROVIDERS: ADMIT Allergy & Immunology; ATTEND Allergy & Immunology
PROC: HZ2ZZZZ Detoxification Services for Substance Abuse Treatment (ICD-10-PCS; principal; 2024-02-14)
DX: F10.230 Alcohol dependence with withdrawal, uncomplicated (principal); F14.10 Cocaine abuse, uncomplicated; F16.20 Hallucinogen dependence, uncomplicated; F12.20 Cannabis dependence, uncomplicated; F17.210 Nicotine dependence, cigarettes, uncomplicated; F31.9 Bipolar disorder, unspecified; F19.24 Other psychoactive substance dependence with psychoactive substance-induced mood disorder; H40.9 Unspecified glaucoma; J44.9 Chronic obstructive pulmonary disease, unspecified; M10.9 Gout, unspecified; M16.11 Unilateral primary osteoarthritis, right hip; Z99.89 Dependence on other enabling machines and devices; R73.03 Prediabetes; Z56.0 Unemployment, unspecified; Z59.00 Homelessness unspecified
CPT/HCPCS: 36415; 80053; 80305; 80307; 85027; 86780; 93005; 93010

== ENCOUNTER 2024-03-12 00:37 | Inpatient (IN) | payer OTHER ==
[2024-03-12 01:01] VITALS: BMI 20.5
[2024-03-12] MEDS ORDERED: NALOXONE HCL 0.4 MG/ML VIAL IM PRN (01:26)
[2024-03-12] MEDS ORDERED: guaiFENesin 600 MG TABLET.ER (FP) PO PRN (01:26)
[2024-03-12] MEDS ORDERED: ACETAMINOPHEN 325 MG TABLET (FP) PO PRN (01:26)
[2024-03-12] MEDS ORDERED: IBUPROFEN 600 MG TABLET (FP) PO PRN (01:26)
[2024-03-12] MEDS ORDERED: MAG HYDROX/AL HYDROX/SIMETH 30 ML UNIT-DOSE CUP PO PRN (01:26)
[2024-03-12] MEDS ORDERED: DICYCLOMINE HCL 10 MG CAPSULE PO PRN (01:26)
[2024-03-12] MEDS ORDERED: NALOXONE (NARCAN) HCL 4 MG/0.1 ML SPRAY NS PRN (01:26)
[2024-03-12] MEDS ORDERED: BISMUTH SUBSALICYLATE 524 MG/30 ML PO PRN (01:26)
[2024-03-12] MEDS ORDERED: IBUPROFEN 400 MG TABLET (FP) PO PRN (01:26)
[2024-03-12] MEDS ORDERED: hydrOXYzine PAMOATE 25 MG CAPSULE (FP) PO PRN (01:26)
[2024-03-12] MEDS ORDERED: NICOTINE POLACRILEX 4 MG GUM BUC PRN (01:26)
[2024-03-12] MEDS ORDERED: BENZONATATE 200 MG CAPSULE PO PRN (01:26)
[2024-03-12] MEDS ORDERED: LOPERAMIDE HCL 2 MG CAPSULE PO PRN (01:26)
[2024-03-12] MEDS ORDERED: POLYETHYLENE GLYCOL (HEALTHYLAX) 3350 17 GM PACKET PO PRN (01:26)
[2024-03-12] MEDS ORDERED: ONDANSETRON *ODT* 4 MG TABLET SL PRN (01:26)
[2024-03-12] MEDS ORDERED: BENZOCAINE/MENTHOL (CHLORASEPTIC ) LOZENGE MM PRN (01:26)
[2024-03-12] MEDS ORDERED: MAGNESIUM HYDROX 2400MG/30ML ORAL SUSPENSION 30 ML CUP PO PRN (01:26)
[2024-03-12] MEDS ORDERED: METHOCARBAMOL 500 MG TABLET PO PRN (01:26)
[2024-03-12] MEDS: PRENATAL VITAMINS W/ FOLIC ACID TABLET (FP) PO SCH (09:37)
[2024-03-12] MEDS: NICOTINE 14 MG/24 HOURS TOPICAL PATCH TD SCH (09:38)
[2024-03-12] MEDS ORDERED: diazePAM 5 MG TABLET PO PRN (10:01)
[2024-03-12] MEDS: DORZOLAMIDE 2% HCL OPHTHALMIC SOLUTION 10 ML BOTTLE OS SCH (10:13)
[2024-03-12] MEDS: diazePAM 5 MG TABLET PO SCH (11:08)
[2024-03-12 11:50] LABS: HEMOGLOBIN 11.7 GM/dL (11.7-16.9); MCH 35.5 pg (25.7-33.7); MCHC 33.3 g/dl (32.0-35.9); MEAN CELL VOLUME 106.6 fl (80-96); MEAN PLT VOLUME 8.3 fl (7.5-11.1); PLATELET COUNT 137 10^3/uL (134-434); RBC 3.28 M/mm3 (4.00-5.60); RDW 12.9 % (11.9-15.9); WHITE BLOOD COUNT 2.7 K/mm3 (4.0-10.0)
[2024-03-12 12:11] LABS: POTASSIUM 3.6 mmol/L (3.5-5.1)
[2024-03-12 12:18] LABS: CALCIUM 8.7 mg/dL (8.5-10.1)
[2024-03-12 12:19] LABS: ALBUMIN 3.6 g/dl (3.4-5.0)
[2024-03-12 12:23] LABS: BILIRUBIN,TOTAL 0.5 mg/dL (0.2-1); TOT PROT 6.7 g/dl (6.4-8.2)
[2024-03-12] MEDS: MELATONIN 5 MG TABLETS PO SCH (22:33)
[2024-03-12] MEDS: THIAMINE 100 MG TABLET PO SCH (22:35)
[2024-03-12] MEDS: LATANOPROST 0.005% OPHTH SOLN 2.5ML BOTTLE OS SCH (22:35)
[2024-03-13] MEDS: diazePAM 5 MG TABLET PO SCH (05:56)
[2024-03-13 21:36] VITALS: RESP 16
[2024-03-14] MEDS: diazePAM 5 MG TABLET PO SCH (05:28)
[2024-03-14 06:10] VITALS: PULSE 60
[2024-03-14 08:33] VITALS: TEMP 97.1
[2024-03-14 12:32] VITALS: BP 138/87
[2024-03-14 16:00] LABS: HEMATOCRIT 40.7 % (35.4-49); HEMOGLOBIN 13.7 GM/dL (11.7-16.9); MCH 35.9 pg (25.7-33.7); MCHC 33.7 g/dl (32.0-35.9); MEAN CELL VOLUME 106.4 fl (80-96); MEAN PLT VOLUME 8.7 fl (7.5-11.1); PLATELET COUNT 138 10^3/uL (134-434); RBC 3.82 M/mm3 (4.00-5.60); RDW 12.9 % (11.9-15.9); WHITE BLOOD COUNT 3.5 K/mm3 (4.0-10.0)
[2024-03-15] MEDS ORDERED: diazePAM 5 MG TABLET PO ONE (06:00)
== END 2024-03-14 15:24 | disposition home or self-care (01) | DRG 774 ==
LOC: YASAS 00:37 → Y6N 01:44
PROVIDERS: ADMIT Allergy & Immunology; ATTEND Surgery
PROC: HZ2ZZZZ Detoxification Services for Substance Abuse Treatment (ICD-10-PCS; principal; 2024-03-12)
DX: F10.230 Alcohol dependence with withdrawal, uncomplicated (principal); F10.220 Alcohol dependence with intoxication, uncomplicated; F14.20 Cocaine dependence, uncomplicated; F16.20 Hallucinogen dependence, uncomplicated; F12.20 Cannabis dependence, uncomplicated; F17.210 Nicotine dependence, cigarettes, uncomplicated; F25.1 Schizoaffective disorder, depressive type; R73.03 Prediabetes; K70.0 Alcoholic fatty liver; H40.10X0 Unspecified open-angle glaucoma, stage unspecified; Z91.013 Allergy to seafood; Z56.0 Unemployment, unspecified; Z59.00 Homelessness unspecified
CPT/HCPCS: 36415; 80053; 80305; 80307; 85027; 86780

== ENCOUNTER 2024-06-14 04:15 | Emergency (ER) | payer OTHER ==
[2024-06-14 04:19] VITALS: BMI 24.0
[2024-06-14] MEDS ORDERED: ONDANSETRON *ODT* 4 MG TABLET ONE (08:48)
[2024-06-14] MEDS ORDERED: KETOROLAC TROMETHAMINE 30 MG/1 ML VIAL ONE (08:48)
[2024-06-14] MEDS ORDERED: ACETAMINOPHEN 500 MG TABLET (FP) ONE (08:50)
[2024-06-14] MEDS: KETOROLAC TROMETHAMINE 30 MG/1 ML VIAL IM ONE (08:58)
[2024-06-14] MEDS: ONDANSETRON *ODT* 4 MG TABLET SL ONE (08:59)
[2024-06-14] MEDS: ACETAMINOPHEN 500 MG TABLET (FP) PO ONE (08:59)
[2024-06-14 10:27] VITALS: RESP 18
[2024-06-14 11:11] VITALS: BP 129/75; PULSE 61; TEMP 98.3
== END 2024-06-14 11:32 | disposition home or self-care (01) ==
LOC: JER 04:15
PROC: 3E0233Z Introduction of Anti-inflammatory into Muscle, Percutaneous Approach (ICD-10-PCS; principal; 2024-06-14)
DX: F10.929 Alcohol use, unspecified with intoxication, unspecified (principal); Y90.9 Presence of alcohol in blood, level not specified; F14.20 Cocaine dependence, uncomplicated; F16.20 Hallucinogen dependence, uncomplicated
CPT/HCPCS: 70450-TC; 72125-TC; 72170-TC-FY; 73502-TC-RT-FY; 73552-TC-RT-FY; 99284-25; Q0162

== ENCOUNTER 2024-06-14 16:19 | Emergency (ER) | payer OTHER ==
[2024-06-14 16:49] VITALS: RESP 15; TEMP 98.9; BMI 49.6
[2024-06-14 18:56] VITALS: BP 140/94; PULSE 65
== END 2024-06-14 19:45 | disposition home or self-care (01) ==
LOC: JER 16:19
DX: F10.129 Alcohol abuse with intoxication, unspecified (principal); F19.10 Other psychoactive substance abuse, uncomplicated
CPT/HCPCS: 82962; 93005; 93010; 99283-25

== ENCOUNTER 2024-06-14 21:44 | Inpatient (IN) | payer OTHER ==
[2024-06-14 22:33] VITALS: BMI 20.9
[2024-06-14] MEDS ORDERED: chlordiazePOXIDE HCL 25 MG CAPSULE PO PRN (22:56)
[2024-06-14] MEDS ORDERED: guaiFENesin 600 MG TABLET.ER (FP) PO PRN (22:57)
[2024-06-14] MEDS ORDERED: P-EPHED 60MG/TRIPROLIDI 2.5MG TABLET PO PRN (22:57)
[2024-06-14] MEDS ORDERED: BISMUTH SUBSALICYLATE 524 MG/30 ML PO PRN (22:57)
[2024-06-14] MEDS ORDERED: BENZOCAINE/MENTHOL (CHLORASEPTIC ) LOZENGE MM PRN (22:57)
[2024-06-14] MEDS ORDERED: IBUPROFEN 400 MG TABLET (FP) PO PRN (22:57)
[2024-06-14] MEDS ORDERED: IBUPROFEN 600 MG TABLET (FP) PO PRN (22:57)
[2024-06-14] MEDS ORDERED: ACETAMINOPHEN 325 MG TABLET (FP) PO PRN (22:57)
[2024-06-14] MEDS ORDERED: NICOTINE POLACRILEX 2 MG LOZENGE BC PRN (22:57)
[2024-06-14] MEDS ORDERED: LOPERAMIDE HCL 2 MG CAPSULE PO PRN (22:57)
[2024-06-14] MEDS ORDERED: DICYCLOMINE HCL 10 MG CAPSULE PO PRN (22:57)
[2024-06-14] MEDS ORDERED: ONDANSETRON *ODT* 4 MG TABLET SL PRN (22:57)
[2024-06-14] MEDS ORDERED: NICOTINE POLACRILEX 2 MG GUM BUC PRN (22:57)
[2024-06-14] MEDS ORDERED: POLYETHYLENE GLYCOL (HEALTHYLAX) 3350 17 GM PACKET PO PRN (22:57)
[2024-06-14] MEDS ORDERED: MAG HYDROX/AL HYDROX/SIMETH 30 ML UNIT-DOSE CUP PO PRN (22:57)
[2024-06-14] MEDS ORDERED: MAGNESIUM HYDROX 2400MG/30ML ORAL SUSPENSION 30 ML CUP PO PRN (22:57)
[2024-06-15] MEDS: DORZOLAMIDE 2% HCL OPHTHALMIC SOLUTION 10 ML BOTTLE OU SCH (01:36)
[2024-06-15] MEDS: LATANOPROST 0.005% OPHTH SOLN 2.5ML BOTTLE OU SCH (01:39)
[2024-06-15] MEDS ORDERED: chlordiazePOXIDE HCL 25 MG CAPSULE ONE ×3 (01:43→10:06)
[2024-06-15] MEDS: chlordiazePOXIDE HCL 25 MG CAPSULE PO SCH (01:44)
[2024-06-15] MEDS: BENZONATATE 200 MG CAPSULE PO PRN (07:06)
[2024-06-15] MEDS ORDERED: PRENATAL VITAMINS W/ FOLIC ACID TABLET (FP) PO ONE (10:06)
[2024-06-15] MEDS: PRENATAL VITAMINS W/ FOLIC ACID TABLET (FP) PO SCH (10:20)
[2024-06-15 15:27] LABS: HEMATOCRIT 38.1 % (35.4-49); HEMOGLOBIN 12.5 GM/dL (11.7-16.9); MCH 34.7 pg (25.7-33.7); MEAN CELL VOLUME 105.2 fl (80-96); MEAN PLT VOLUME 8.1 fl (7.5-11.1); PLATELET COUNT 142 10^3/uL (134-434); RBC 3.62 M/mm3 (4.00-5.60); RDW 13.5 % (11.9-15.9)
[2024-06-15 15:37] LABS: CALCIUM 9.4 mg/dL (8.5-10.1)
[2024-06-15 15:38] LABS: ALBUMIN 3.7 g/dl (3.4-5.0); BLOOD UREA NITROGEN 13.7 mg/dL (7-18)
[2024-06-15 15:41] LABS: CREATININE 1.2 mg/dL (0.55-1.3)
[2024-06-15 15:43] LABS: BILIRUBIN,TOTAL 0.9 mg/dL (0.2-1); TOT PROT 7.2 g/dl (6.4-8.2)
[2024-06-15] MEDS: THIAMINE 100 MG TABLET PO SCH (22:44)
[2024-06-15] MEDS: MELATONIN 5 MG TABLETS PO SCH (22:44)
[2024-06-16] MEDS: chlordiazePOXIDE HCL 25 MG CAPSULE PO SCH (05:50)
[2024-06-16] MEDS: METHOCARBAMOL 500 MG TABLET PO PRN (10:50)
[2024-06-16] MEDS: hydrOXYzine PAMOATE 25 MG CAPSULE (FP) PO PRN (10:50)
[2024-06-16 12:48] VITALS: BP 124/66; PULSE 67; RESP 17; TEMP 98.2
[2024-06-16] MEDS: NALOXONE (NYS OPIOID OVERDOSE PROGRAM) 4 MG/0.1 ML SPRAY NS PRN (13:43)
[2024-06-17] MEDS ORDERED: chlordiazePOXIDE HCL 10 MG CAPSULE PO PRN
[2024-06-17] MEDS ORDERED: chlordiazePOXIDE HCL 10 MG CAPSULE PO SCH (05:00)
[2024-06-18] MEDS ORDERED: chlordiazePOXIDE HCL 10 MG CAPSULE PO SCH (05:00)
[2024-06-19] MEDS ORDERED: chlordiazePOXIDE HCL 10 MG CAPSULE PO ONE (05:00)
== END 2024-06-16 14:20 | disposition left against medical advice (07) | DRG 770 ==
LOC: YASAS 21:44 → Y6N 06-15 11:29
PROVIDERS: ADMIT Allergy & Immunology; ATTEND Surgery
PROC: HZ2ZZZZ Detoxification Services for Substance Abuse Treatment (ICD-10-PCS; principal; 2024-06-15)
DX: F10.230 Alcohol dependence with withdrawal, uncomplicated (principal); F16.20 Hallucinogen dependence, uncomplicated; F12.20 Cannabis dependence, uncomplicated; F17.210 Nicotine dependence, cigarettes, uncomplicated; F31.9 Bipolar disorder, unspecified; Z56.0 Unemployment, unspecified; Z59.02 Unsheltered homelessness
CPT/HCPCS: 0241U-QW; 36415; 80053; 80305; 80307; 82962; 85027; 86780; 93005; 93010